=== PATIENT | female | born 1975 | race Hispanic/Latino ===

== ENCOUNTER 2017-10-08 13:30 | Emergency (ER) | payer SELFPAY ==
[2017-10-08 14:05] LABS: Bilirubin Negative (Negative); Blood, Urine Negative (Negative); Clarity CLEAR (Clear); Glucose, Urine (Dipstick) Negative (Negative); Leukocyte Negative (Negative); Nitrite Negative (Negative); Protein, Urine (Dipstick) Negative (Neg-Trace); Specific Gravity, Urine 1.007 (1.002-1.036)
[2017-10-08] MEDS ORDERED: Lidocaine Viscous Sol 2% 15 ml UD Cup ONE (14:07)
[2017-10-08] MEDS ORDERED: Sucralfate 1 GM/10 ML UDCUP ONE (14:07)
[2017-10-08] MEDS ORDERED: Mag-Al 1200 mg/1200 mg/30 ML UDCUP ONE (14:07)
[2017-10-08 14:09] LABS: Pregnancy Test - Urine (BHCG) Negative (Negative); Pregu Control Background? CLEAR/WHITE (CLR/WHITE); Pregu Control Bar Appear? YES (CONTROL BAR); Specific Gravity 1.007 (1.002-1.036)
--- NOTE | 2017-10-08 15:13 | RAD ---
PORTABLE AP CHEST XRAY: DATE: 10/08/17. HISTORY: Chest pain and throat pain when swallowing for 3 days. COMPARISON: None available. FINDINGS: The cardiac silhouette and pulmonary vasculature are within normal limits. The lungs are clear. Oss eous structures are intact. IMPRESSION: No acute cardiopulmonary process. POS: H
== END 2017-10-08 14:58 | disposition home or self-care (01) ==
LOC: ERS 13:30
DX: K20.9 Esophagitis, unspecified (principal); E03.9 Hypothyroidism, unspecified; Z87.891 Personal history of nicotine dependence; Z79.899 Other long term (current) drug therapy
CPT/HCPCS: 71045; 81003; 81025